=== PATIENT | male | born 1985 | race Caucasian/White ===

== ENCOUNTER 2019-06-01 20:05 | Emergency (ER) | payer MEDICAID ==
[~2019-06-01] VITALS: Ht 170.2 cm; Wt 97.7 kg
[2019-06-01 20:12] VITALS: Ht 170.2 cm; Wt 97.7 kg
[2019-06-01] MEDS ORDERED: HYDROCODON-ACE1 EA10 PO (20:35)
[2019-06-01 21:15] VITALS: BP 132/80
== END 2019-06-01 21:17 | disposition home or self-care (01) ==
LOC: D.ER 20:05
DX: S42.002A Fracture of unspecified part of left clavicle, initial encounter for closed fracture (principal); V19.9XXA Pedal cyclist (driver) (passenger) injured in unspecified traffic accident, initial encounter; Y93.89 Activity, other specified; Y92.89 Other specified places as the place of occurrence of the external cause